=== PATIENT | female | born 1945 | race Caucasian/White ===

== ENCOUNTER 2023-03-09 06:24 | Day surgery (SDC) | payer MEDICARE ==
[2023-03-09] MEDS ORDERED: Sodium Chloride 0.9% 10 ML Syringe IVPUSH ONE (07:30)
== END 2023-03-09 08:20 | disposition home or self-care (01) ==
LOC: JP.SDS 06:24
PROVIDERS: ATTEND Ophthalmology
DX: H26.9 Unspecified cataract (principal)
CPT/HCPCS: J3490; V2632

== ENCOUNTER 2023-04-13 07:50 | Day surgery (SDC) | payer MEDICARE ==
[2023-04-13] MEDS ORDERED: Sodium Chloride 0.9% 10 ML Syringe FLUSH PRN (08:30)
== END 2023-04-13 09:10 | disposition home or self-care (01) ==
LOC: JP.SDS 07:50
PROVIDERS: ATTEND Ophthalmology
DX: H26.9 Unspecified cataract (principal)
CPT/HCPCS: 66984; V2632